=== PATIENT | female | born 1955 | race African-American/Black ===

== ENCOUNTER 2017-01-05 11:03 | Emergency (ER) | payer MEDICAID ==
--- NOTE | 2017-01-05 11:22 | DR.GENAD ---
HPI - PCP Primary Care Physician: Nanda - HPI Comment HPI Comment: PATIENT DENIES TRAUMA. HAVING PROBLEM BEARING WEIGHT ON THE RIGHT LOWER EXTREMITY. HISTORY ARTHRITIS. - Complaint/Symptoms Chief Complaint Doctors Comments: RIGHT KNEE PAIN FOR SEVERAL DAYS. WORSE THIS AM. Chief Complaint:: LEFT KNEE PAIN - Nurses notes reviewed Nurses Notes Review: Yes - Source History Provided: Patient - Mode of Arrival Mode of Arrival: Ambulatory - Timing Onset of Chief Complaint: 12/22/16 Came on: Suddenly - Duration Duration: Constant Duration: Days - Severity Severity: Moderate PMH - PMH Past Medical History: Yes Past Medical History: Arthritis, COPD, Hypertension Past Surgical History: Yes Surgical History: Abdominal Surgery - Family History History of Family Medical Conditions: Yes Family Medical History: Diabetes Mellitus, Hypertension - Social History Does patient currently use any type of tobacco product: Yes Have you used tobacco products in the last 12 months: Yes Type of Tobacco Use: Cigarettes How many years tobacco product used: 40 Does any household member use tobacco: No Alcohol Use: None Do you use any recreational Drugs:: No Lives With: Family Lives Where: Home - infectious screening In the last 2 months have you had wt loss of >10#?: NO Have you had fever, night sweats or hemotysis?: No Have you traveled outside the country in the last 6 months?: No Isolation: Standard ROS - Review of Systems Constitutional: No Symptoms Reported Eyes: No Symptoms Reported ENTM: No Symptoms Reported Respiratoy: No Symptoms Reported Cardiovascular: No Symptoms Reported Gastrointestinal/Abdominal: No Symptoms Reported Genitourinary: No Symptoms Reported Neurological: Problems Walking (PUTTING WEIGHT ON RLE.) Musculoskeletal: Right, Knee Integumentary: No Symptoms Reported Hematologic/Lymphatic: No Symptoms Reported Endocrine: No Symptoms Reported All Other Systems: Reviewed and Negative PE - Vital Signs Vitals: Temperature 98.8 F Pulse Rate 88 Respiratory Rate 20 Blood Pressure [Right Arm] 170/81 Blood Pressure 200/102 O2 Sat by Pulse Oximetry 100 - General Limitations: No Limitations General Appearance: Alert - Head Head Exam: Normal Inspection - Eyes Eye exam: Normal Appearance - ENT ENT Exam: Normal External Ear Exam External Ear Exam: Normal External Inspection Throat Exam: Normal Inspection - Neck Neck Exam: Trachea Midline - Chest Chest Inspection: Symmetric Chest Wall Rise - Respiratory Respiratory Exam: Normal Lung Sounds Bilat Respiratory Exam: Bilateral Clear to Auscultation - Cardiovascular Cardiovascular Exam: Regular Rate, Normal Rhythm, Normal Heart Sounds - Abdominal Exam Abdominal Exam: Normal Inspection - Extremities Extremities Exam: Tenderness (RIGHT KNEE), Joint Swelling (RIGHT KNEE) - Back Back Exam: Normal Inspection - Neurologic Neurological Exam: Alert, Oriented X3 - Psychiatric Psychiatric Exam: Normal Affect, Normal Mood - Skin Skin Exam: Normal Color MDM - Differential Diagnosis Differential Diagnosis: RIGHT KNEE PAIN, SPRAIN, FRACTURE, STRAIN, ARTHRITIS Course - Treatment Treatment: SEE ORDERS. BP IMPROVE. HAVE NORVASE THAT SHE WILL TAKE WHEN SHE GET HOME. DOSAGE NOT ON OUR RECORD. - Education/Counseling Education/Counseling: Patient, Education Educated On: Treatment, Diagnosis, Needs for Follow Up ROR - XRAY XRAY Interpreted by: Radiologist XRAY Findings: REPORT DISCUSS WITH PATIENT. - Diagnosis Discharge Problem: Musculoskeletal pain, Arthritis Right knee pain Qualifiers: Chronicity: acute Qualified Code(s): M25.561 - Pain in right knee Hypertension Qualifiers: Hypertension type: essential hypertension Qualified Code(s): I10 - Essential ( primary) hypertension - Discharge Plan Disposition: 01 HOME, SELF-CARE Condition: Stable Prescriptions: Ibuprofen [MOTRIN TAB 600 MG *] 600 mg PO TID PRN #20 tab PRN Reason: Pain/Inflammation Lisinopril 10 mg PO DAILY #30 tab Tramadol HCl 50 mg PO Q8H PRN #12 tab PRN Reason: Pain - Follow ups/Referrals Follow ups/Referrals: Jeannette YS [Primary Care Provider] - 3 days - Instructions Instructions: Hypertension, Arthritis, [id number] Additional Instructions: RETURN TO ED IF WORSE.
[2017-01-05] MEDS ORDERED: TORADOL 60 MG VIAL IM ONE (11:23)
[2017-01-05] MEDS ORDERED: NORFLEX INJ IM ONE (11:23)
[2017-01-05] MEDS ORDERED: NORFLEX INJ ONE (11:29)
[2017-01-05] MEDS ORDERED: TORADOL 60 MG VIAL ONE (11:29)
[2017-01-05] MEDS ORDERED: ZESTRIL TAB 10 MG PO ONE (12:01)
[2017-01-05 12:43] VITALS: BP 170/81
--- NOTE | 2017-01-05 14:52 | RAD ---
History: Right knee pain. Exam: Two view series of the right knee joint demonstrates mild to moderate tricompartmental right k nee joint osteoarthritis which is most severe in the medial knee compartment. There is a small to mo derate sized knee joint effusion with diffuse periarticular edema. In the absence of a history of tr auma, an early knee joint infection should be considered and excluded. No acute fracture or acute alyssa ny injury is seen. No destructive lytic bony lesion or process is currently seen. No aggressive jt ostitis or foreign bodies observed. No other abnormalities are seen. Impression: As above. Reported By:
== END 2017-01-05 12:49 | disposition home or self-care (01) ==
LOC: ER 11:03
DX: M19.90 Unspecified osteoarthritis, unspecified site (principal); M79.1 Myalgia; M25.561 Pain in right knee; I10 Essential (primary) hypertension
CPT/HCPCS: 73560; 96372; 99282; 99283; J1885; J2360

== ENCOUNTER 2017-06-02 12:21 | Emergency (ER) | payer MEDICAID ==
[2017-06-02 12:27] VITALS: BP 184/82; BMI 19.8
--- NOTE | 2017-06-02 12:54 | DR.EXTPAIN ---
HPI - Time seen Time seen: 12:50 - PCP Primary Care Physician: KERRIE - Complaint/Symptoms Chief Complaint Doctor Comments: Patient states that she moving and in the back of truck injured left foot on furnature moved onto her foot. She states that she also feel to the floor and hurt her coccyx Chief Complaint:: FOOT AND BACK PAIN. FEEL A COUPLE WEEKS AGO AND HURT MY BACK AND FOOT Self Treatment fo Chief Complaint: KENNEDY FERNANDEZ AND OTC MEDS - Source History Provided: Patient - Mode of arrival Mode of Arrival: Ambulatory - Timing Onset of Chief Complaint: 05/19/17 PMH - PMH Past Medical History: Yes Past Medical History: Arthritis, COPD, Hypertension Past Surgical History: Yes Surgical History: Abdominal Surgery - Family History History of Family Medical Conditions: Yes Family Medical History: Heart Failure - Social History Type of Tobacco Use: Cigarettes Does any household member use tobacco: No Alcohol Use: None Do you use any recreational Drugs:: No Lives With: Alone Lives Where: Home - infectious screening In the last 2 months have you had wt loss of >10#?: NO Have you had fever, night sweats or hemotysis?: No Have you traveled outside the country in the last 6 months?: No Isolation: Standard ROS - Review of Systems Eyes: No Symptoms Reported ENTM: No Symptoms Reported Respiratoy: No Symptoms Reported Cardiovascular: No Symptoms Reported Gastrointestinal/Abdominal: No Symptoms Reported Genitourinary: No Symptoms Reported Neurological: No Symptoms Reported Musculoskeletal: Foot (left foot pain) Integumentary: No Symptoms Reported Hematologic/Lymphatic: No Symptoms Reported Endocrine: No Symptoms Reported Psychiatric: No Symptoms Reported All Other Systems: Reviewed and Negative PE - Vital Signs Vitals: Temperature 98.6 F Pulse Rate 84 Respiratory Rate 20 Blood Pressure [Right Arm] 170/81 Blood Pressure 184/82 O2 Sat by Pulse Oximetry 100 - General General Appearance: Alert, In No Apparent Distress - Head Head Exam: Normal Inspection, Atraumatic - Eyes Eye exam: Normal Appearance, PERRL, EOMI - ENT ENT Exam: Normal Exam - Neck Neck Exam: Normal Inspection - Chest Chest Inspection: Normal Inspection - Respiratory Respiratory Exam: Normal Lung Sounds Bilat Respiratory Exam: Bilateral Clear to Auscultation - Cardiovascular Cardiovascular Exam: Regular Rate, Normal Rhythm - Abdominal Exam Abdominal Exam: Normal Inspection, Normal Bowel Sounds Abdominal Tenderness: negative: RUQ, RLQ, LUQ, LLQ, Epigastrium, Suprapubic, Diffuse, Mild, Moderate, Severe, Other - Extremities Extremities Exam: Normal Inspection, Full ROM - Upper Extremities Shoulder Exam: Normal Inspection, Full ROM Arm Exam: Normal Inspection Elbow Exam: Normal Inspection Forearm Exam: Normal Inspection Hand Exam: Normal Inspection Neuromotor Exam: Normal Exam Neurosensory Exam: Normal Exam - Lower Extremities Hip/Pelvis Exam: Normal Inspection Upper Leg Exam: Normal Inspection Knee Exam: Normal Inspection Lower Leg Exam: Normal Inspection Ankle Exam: Normal Inspection Foot/Toe Exam: Tenderness (left) Neurovascular/Tendon Exam: Normal Capillary Refill Gait Exam: Observed & Limited by Pain - Back Back Exam: Normal Inspection - Neurological Neurological Exam: Alert, Oriented X3, CN II-XII Intact - Psychiatric Psychiatric Exam: Normal Affect, Normal Mood - Skin Skin Exam: Warm, Dry, Intact ROR - XRAY XRAY Interpreted by: Radiologist (Mild degenerative joint changes at the meta tarsophalangeal joint. No fracture) - Diagnosis Discharge Problem: Contusion of foot, left Qualifiers: Encounter type: initial encounter Qualified Code(s): S90.32XA - Contusion of left foot, initial encounter - Discharge Plan Condition: Stable - Follow ups/Referrals Follow ups/Referrals: Jeannette SY [Primary Care Provider] - 3 days - Instructions
[2017-06-02] MEDS ORDERED: TORADOL 30 MG VIAL IM ONE (12:55)
[2017-06-02] MEDS ORDERED: TORADOL 30 MG VIAL ONE (13:10)
--- NOTE | 2017-06-02 13:39 | RAD ---
HISTORY: Pain, patient fell couple of weeks ago Study: Left foot three views Comparison: Findings: No acute cortical disruption or dislocation can be identified. No significant soft tissue swelling or injury can be seen. The visualized portions of the talus and calcaneus are unremarkable. Mild de generative changes of 1st metatarsophalangeal joint are noted. IMPRESSION: 1. Mild degenerative changes of the 1st metatarsophalangeal joint. No acute fracture or dislocation seen. Reported By:
== END 2017-06-02 14:27 | disposition home or self-care (01) ==
LOC: ER 12:33
DX: S90.32XA Contusion of left foot, initial encounter (principal); X58.XXXA Exposure to other specified factors, initial encounter; Y92.89 Other specified places as the place of occurrence of the external cause
CPT/HCPCS: 73630; 96372; 99282; J1885

== ENCOUNTER 2025-09-24 14:30 | Observation (INO) ==
--- NOTE | 2025-09-24 14:45 | DR.AMS ---
HPI Time Seen Time Seen by Provider: 09/24/25 14:44 Complaint Cheif Complaint Doctors Comments: To the paramedics they stated that the patient signed states she was little disoriented and very irritable she does get chemotherapy daily for lung cancer but over last couple days she has been more disoriented.She did miss getting chemotherapy for the last 2 days. PMH PMH Past Medical History: Anemia, Anxiety, Arthritis, COPD, Diabetes, GERD and Hypertension Past Surgical History: Yes Surgical History: Abdominal Surgery and Other Family History Family Medical History: Heart Failure Social History Do you use any recreational Drugs:: No ROS Review of Systems Constitutional: Irritable, Fatigue and Other (abdominal pain) Eyes: No Symptoms Reported ENTM: No Symptoms Reported Respiratoy: No Symptoms Reported Cardiovascular: No Symptoms Reported Gastrointestinal/Abdominal: Abdominal Pain Genitourinary: No Symptoms Reported Neurological: Weakness Musculoskeletal: No Symptoms Reported Integumentary: No Symptoms Reported Hematologic/Lymphatic: No Symptoms Reported Endocrine: No Symptoms Reported Psychiatric: No Symptoms Reported All Other Systems: Reviewed and Negative PE Vitals Vital Signs: Temp Pulse Resp BP Pulse Ox O2 Del Method O2 Flow Rate 09/24/25 18:00 158/76 09/24/25 18:00 111 H 19 98 09/24/25 17:45 113 H 19 99 09/24/25 17:30 160/86 09/24/25 17:30 114 H 22 09/24/25 17:15 111 H 30 H 09/24/25 17:00 115 H 24 09/24/25 17:00 170/87 09/24/25 16:59 25 H 09/24/25 16:45 114 H 25 H Nasal Cannula 2 09/24/25 16:30 115 H 27 H 95 Nasal Cannula 2 09/24/25 16:30 165/82 Nasal Cannula 2 09/24/25 16:15 87 24 98 Nasal Cannula 2 09/24/25 16:00 102 H 27 H 98 Nasal Cannula 2 09/24/25 16:00 197/93 Nasal Cannula 2 09/24/25 15:47 141/90 Nasal Cannula 2 09/24/25 15:47 113 H 26 H Nasal Cannula 2 09/24/25 15:45 114 H 26 H Nasal Cannula 2 09/24/25 15:37 107 H 26 H Nasal Cannula 2 09/24/25 15:15 112 H 30 H 100 Nasal Cannula 2 09/24/25 15:03 113 H 22 99 09/24/25 14:31 98.8 F 112 H 19 173/85 97 Nasal Cannula General Limitations: Physical Limitation (due to lung cancer and lethargy) General Appearance: In Distress (moderate distress) Head Head Exam: Normal Inspection Eyes Eye exam: Normal Appearance ENT ENT Exam: Normal Exam External Ear Exam: Normal External Inspection TM/Canal Exam: Bilateral: Normal Nose Exam: Normal Nose Exam Mouth Exam: Normal Inspection Throat Exam: Normal Inspection Neck Neck Exam: Normal Inspection Chest Chest Inspection: Other (right shoulder lesion) Respiratory Respiratory Exam: Normal Lung Sounds Bilat Respiratory Exam: Bilateral: Rhonchi Cardiovascular Cardiovascular Exam: Regular Rate Abdominal Exam Abdominal Exam: Normal Inspection, Normal Bowel Sounds and Distention Extremities Extremities Exam: Normal Inspection Back Back Exam: Normal Inspection Neurological Neurological Exam: Alert, Oriented X3 and CN II-XII Intact Patient Oriented To: Person, Place and Time Speech: Fluid Speech Motor Strength - LUE: 2/5 Motor Strength - RUE: 2/5 Motor Strength - LLE: 2/5 Motor Strength - RLE: 2/5 MDM Additional Information Obtained Findings: constipation,metastatic lung disease Differential Diagnosis Metabolic: Dehydration Toxicologic: Medication Toxicity Infectious: UTI COURSE Treatment Treatment: Patient complaining increased pain doing this ER evaluation. She was given morphine 4 mg IV for pain along with Zofran 4 mg IV for pain.We did a CT scan of the abdomen pelvis that showed metastatic lung disease and a normal amount of constipation in the colon.There was no bowel obstruction.The spine and insisted patient was currently getting radiation patient therapy for her lung cancer and she is taking some medication for her constipation but she has not not been able to be compliant with that and she has not a tremendous amount of stool in her colon so we did discuss this patient with the on-call with Dr. Edwards instead the patient could be put in for obstipation and for management of her pain.Patient was told of the plan to admit for obstipation and the patient family was also told of the plan to admit biopsy patient and there was agreeing to the obstipation admission. [facility]OR Labs Reviewed Laboratory Results Reviewed?: Yes 09/24/25 14:50 09/24/25 14:50 Laboratory: WBC 7.3 X10^3/uL (3.6-10.0) 09/24/25 14:50 RBC 3.52 X10^6/uL (3.5-5.4) 09/24/25 14:50 Hgb 8.1 g/dL (12.0-16.0) L 09/24/25 14:50 Hct 25.2 % (36.0-47.0) L 09/24/25 14:50 MCV 71.7 fL (80.0-100.0) L 09/24/25 14:50 MCH 23.0 pg (27.0-34.0) L 09/24/25 14:50 MCHC 32.1 g/dL (33.0-35.0) L 09/24/25 14:50 RDW 22.5 % (11.6-16.5) H 09/24/25 14:50 Plt Count 423 X10^3/uL (150.0-450.0) 09/24/25 14:50 MPV 7.0 fL (7.4-11.0) L 09/24/25 14:50 Neut % (Auto) 84.2 % (42.0-75.0) H 09/24/25 14:50 Lymph % (Auto) 6.9 % (21.0-51.0) L 09/24/25 14:50 Jasper % (Auto) 8.2 % (0.0-13.0) 09/24/25 14:50 Eos % (Auto) 0.4 % (0.9-2.9) L 09/24/25 14:50 Baso % (Auto) 0.3 % (0.2-1.0) 09/24/25 14:50 Neut # (Auto) 6.2 x10^3/uL (2.2-4.8) H 09/24/25 14:50 Lymph # (Auto) 0.5 X10^3/uL (1.3-2.9) L 09/24/25 14:50 Jasper # (Auto) 0.6 x10^3/uL (0.3-0.8) 09/24/25 14:50 Eos # (Auto) 0.0 x10^3/uL (0.0-0.2) 09/24/25 14:50 Baso # (Auto) 0.0 X10^3/uL (0.0-0.1) 09/24/25 14:50 Absolute Nucleated RBC 0.0 /100WBC 09/24/25 14:50 Sodium 139 mmol/L (136-145) 09/24/25 14:50 Corrected Sodium TNP 09/24/25 14:50 Potassium 3.4 mmol/L (3.5-5.1) L 09/24/25 14:50 Chloride 101 mmol/L (98-107) 09/24/25 14:50 Carbon Dioxide 31.5 mmol/L (21-32) 09/24/25 14:50 BUN 15 mg/dL (7-18) 09/24/25 14:50 Creatinine 0.71 mg/dL (0.55-1.02) 09/24/25 14:50 Est GFR (MDRD) Af Amer > 60 (>60) 09/24/25 14:50 Est GFR (MDRD) Non-Af > 60 (>60) 09/24/25 14:50 Glucose 85 mg/dL (65-99) 09/24/25 14:50 Calcium 11.1 mg/dL (8.5-10.1) H 09/24/25 14:50 Corrected Calcium 12.9 mg/dL (8.5-10.1) H 09/24/25 14:50 Total Bilirubin 0.30 mg/dL (0.2-1.0) 09/24/25 14:50 AST 25 Units/L (15-37) 09/24/25 14:50 ALT 9 Units/L (12-78) L 09/24/25 14:50 Alkaline Phosphatase 117 Units/L (46-116) H 09/24/25 14:50 Total Protein 8.6 g/dL (6.4-8.2) H 09/24/25 14:50 Albumin 1.7 g/dL (3.4-5.0) L 09/24/25 14:50 Globulin 6.9 g/dL (2.5-4.5) H 09/24/25 14:50 Albumin/Globulin Ratio 0.2 Ratio (1.1-2.1) L 09/24/25 14:50 Amylase 11 Units/L (25-115) L 09/24/25 14:50 Lipase 9 Units/L (16-77) L 09/24/25 14:50 Opioid Opioid Risk Tool Age (Gar[place] box if 16-45): No History of Preadolescent Sexual Abuse: No Total: 0 Total Score Risk Category: Low Risk Copyright: Tahir HOUSER predicting aberrant behaviors Discharge Plan Diagnosis Discharge Problem: Obstipation, Metastatic primary lung cancer, Chronic pain Discharge Plan Patient Disposition: 09 ADMITTED INPATIENT Condition: Stable Orders to Discharge Patient Discharge Orders: Transfer (Routine); Ordered 09/24/25 Ordered By: Arnulfo Wilkerson
[2025-09-24 15:10] LABS: MEAN PLATELET VOLUME 7.0 fL (7.4-11.0); RED CELL DISTRIBUTION WIDTH 22.5 % (11.6-16.5)
[2025-09-24 15:24] LABS: COR CA(FOR HYPOALB) 12.9 mg/dL (8.5-10.1); CREATININE 0.71 mg/dL (0.55-1.02); eGFR NON BLACK RACES > 60 (>60)
--- NOTE | 2025-09-24 16:25 | CT ---
EXAM: CT ABDOMEN AND PELVIS WITH CONTRAST HISTORY: RT SIDE ABD PAIN; COMPARISON: None. TECHNIQUE: Axial CT images were obtained through the abdomen and pelvis after the intravenous administration of contrast. Coronal reformatted images were included. Informed written consent was obtained prior to contrast administration. All CT scans at this facility use dose modulation, iterative reconstruction, and/or weight based dosing when appropriate to reduce radiation dose to as low as reasonably achievable. FINDINGS: LOWER THORAX: Innumerable pulmonary nodules noted at the lung bases, grossly similar to previous examination. Mediastinal lymphadenopathy. Inferior sternal lytic lesion is noted, described in further detail below. ABDOMEN: LIVER: Within normal limits. GALLBLADDER: Within normal limits. SPLEEN: Within normal limits. PANCREAS: Within normal limits. KIDNEYS: Within normal limits. ADRENAL GLANDS: Within normal limits. GI TRACT: Large volume of colonic stool suggests constipation. No evidence of bowel obstruction. LYMPH NODES: Retroperitoneal lymphadenopathy noted. Reference lymph node adjacent to the aorta measures 1.7 x 1.0 cm. VESSELS: Mild atherosclerosis. PERITONEUM / RETROPERITONEUM: No free gas. PELVIS: BLADDER: Within normal limits. GENITALS: Calcified uterine fibroids. BONES: There is a lytic lesion in the inferior sternum, consistent with osseous metastatic disease. IMPRESSION: Metastatic disease noted within multiple pulmonary nodules, mediastinal and retroperitoneal lymph nodes and within the inferior sternum, presumably related to the reported history of lung cancer. Large volume of colonic stool. No evidence of bowel obstruction. No clear correlate for right-sided abdominal pain. THIS IS AN ELECTRONICALLY VERIFIED FINAL REPORT 09/24/2025 4:22 PM - Electronically signed by Km Fowler MD
[2025-09-24] MEDS: MORPHINE SULFATE INJ 4 MG IVP ONE (16:59)
[2025-09-24] MEDS: ZOFRAN INJ 4 MG VIAL IVP ONE (16:59)
[2025-09-24] MEDS ORDERED: NS 1,000 ML IV 1,000 ML ONE (19:37)
[2025-09-24] MEDS: DULCOLAX SUPPOSITORY 10 MG RECTAL ONE (19:41)
[2025-09-24] MEDS: NS 1,000 ML IV 1,000 ML IV SCH (19:53)
[2025-09-24] MEDS: MORPHINE SULFATE INJ 2 MG INJ IVP PRN (20:01)
[2025-09-24 20:26] VITALS: BMI 17.2
[2025-09-24] MEDS ORDERED: NovoLIN R (or HumuLIN R) SUBCUT PRN (20:32)
[2025-09-24] MEDS: PULMICORT NEB TX 0.5 MG NEB SCH (21:18)
[2025-09-24] MEDS: CATAPRES TAB 0.2 MG PO SCH (21:42)
[2025-09-24] MEDS: NEURONTIN TAB 600 MG PO SCH (21:42)
[2025-09-24] MEDS: MILK OF MAGNESIA PO PRN (21:42)
[2025-09-24] MEDS: FLEET ENEMA ADULT PR SCH (21:55)
[2025-09-24] MEDS: RELISTOR SC SCH (23:04)
[2025-09-25] MEDS: NORCO 5/325 MG TAB PO PRN (01:13)
[2025-09-25 07:13] LABS: MEAN PLATELET VOLUME 7.4 fL (7.4-11.0); RED CELL DISTRIBUTION WIDTH 22.6 % (11.6-16.5)
[2025-09-25 07:18] LABS: COR CA(FOR HYPOALB) 12.2 mg/dL (8.5-10.1); CREATININE 0.69 mg/dL (0.55-1.02); eGFR NON BLACK RACES > 60 (>60)
[2025-09-25] MEDS ORDERED: CONSULT PHARMACY - POTASSIUM & MAGNESIUM XX SCH (08:00)
[2025-09-25] MEDS ORDERED: PATIENT'S HOME MEDICATION (Fluticasone-Umeclidin-Vilanter [Trelegy Ellipta] 100-62.5-25 mc IN SCH (09:00)
[2025-09-25] MEDS: K-DUR TAB 20 MEQ PO SCH (09:33)
[2025-09-25] MEDS: PROTONIX TAB 40 MG PO SCH (09:33)
[2025-09-25] MEDS: ZESTRIL TAB 40 MG PO SCH (09:33)
[2025-09-25] MEDS: LINZESS PO SCH (09:33)
[2025-09-25] MEDS: SINGULAIR TAB 10 MG PO SCH (09:34)
[2025-09-25] MEDS: NORVASC TAB 10 MG PO SCH (09:34)
--- NOTE | 2025-09-25 15:25 | CT ---
EXAM: BRAIN W/O CON HISTORY: AMS, HX METASTATIC CANCER; COMPARISON: 07/30/2025 TECHNIQUE: CT of the head obtained without IV contrast. Sagittal and coronal reformatted images were performed. Dose reduction techniques including Automated Exposure Control (AEC) and adjustment of mA and kV were utilized. FINDINGS: No evidence of acute territorial infarct. No acute intracranial hemorrhage. No evidence of intracranial mass or midline shift. No hydrocephalus. No abnormal intra or extra-axial fluid collections. Mild chronic small vessel ischemic changes and global volume loss with commensurate ventricular dilatation. The calvaria is intact. The bilateral mastoid air cells and visualized paranasal sinuses are well pneumatized. The bilateral orbits are unremarkable. IMPRESSION: No acute intracranial findings. THIS IS AN ELECTRONICALLY VERIFIED FINAL REPORT 09/25/2025 3:22 PM - Electronically signed by Stefano Vale MD
--- NOTE | 2025-09-25 15:54 | DR.H&P ---
H&P History & Physical for Day of: H&P Date: 09/24/25 Chief Complaint Chief Complaint: abdominal pain History of Present Illness History of Present Illness: Patient brought to the ER by family due to worsening abdominal pain and mental status. She is undergoing immunotherapy and radiation for metastatic lung cancer. Was originally on hospice and then decided to be more aggressive and go for a cure. She has missed a couple of days of radiation this week due to her fatigue, abdominal pain, and worsening overall mental status. Sister is currently at bedside with the nurse. ER workup was consistent with severe constipation and mild hypercalcemia with other chronic changes. ROS: 12 point ROS positive for generalized weakness, visible mets, altered mental status, severe constipation, decreased oral intake, and malaise. Is negative for fever, chills, nausea, vomiting, diarrhea, dysuria. PE: Frail, elderly, chronically ill-appearing female in no acute distress. She appears uncomfortable and is leaning to the left while holding her face in her hand. Heart regular rate and rhythm. Lungs diminished with abnormal sounds throughout. Belly is mildly distended but soft with bowel sounds present. Skin turgor is decreased with no rash appreciated. She has markings that appear to be associated with radiation treatments on her chest. Swelling of bilateral lower extremities present. Past Medical History Past Medical History: Anemia, Anxiety, Arthritis, COPD, Diabetes, GERD, Hypertension and Cancer (Metastatic lung) Past Surgical History Surgical History: Abdominal Surgery Family History Family Medical History: Cancer, MD and Coronary Artery Disease Social History Does patient currently use any type of tobacco product: Yes Have you used tobacco products in the last 12 months: Yes Type of Tobacco Use: Cigarettes Does any household member use tobacco: No Alcohol Use: None Drug Use: None Medications Home Medications: Home Medications Medication Instructions Recorded Confirmed Type clonidine HCl 0.2 mg tablet 0.2 mg PO BID 08/23/2510/07 History cyproheptadine 4 mg tablet 4 mg PO BID 08/23/25 History fluticasone fur. 100 mcg-umeclid 1 ea inhalation QDAY 08/23/25 09/24/25 History 62.5 mcg-vilant 25 mcg inhalat.powder (Trelegy Ellipta) gabapentin 600 mg tablet 600 mg PO TID 08/23/2509/24 History hydrocodone 5 mg-acetaminophen 325 1 tab PO TID PRN 09/24/25 History mg tablet lisinopril 40 mg tablet 40 mg PO QDAY 08/23/2509/24 History lubiprostone 8 mcg capsule 8 mcg PO BID 08/23/2509/24 History megestrol 40 mg tablet 40 mg PO QID 08/23/25 History montelukast 10 mg tablet 10 mg PO QDAY 08/23/2509/24 History pantoprazole 40 mg tablet,delayed 40 mg PO QDAY 09/24/25 History release amlodipine 10 mg tablet 10 mg PO QDAY 09/24/2509/24 History hydrocodone 5 mg-acetaminophen 325 1 tab PO TID PRN 09/24/25 History mg tablet linaclotide 72 mcg capsule 72 mcg PO QAM 09/24/2509/13 History (Linzess) lorazepam 0.5 mg tablet 0.5 mg PO QID PRN 09/24/25 1 11/25/24 History morphine concentrate 100 mg/5 mL mg PO PRN PRN 5 History (20 mg/mL) oral solution oxycodone 30 mg tablet 30 mg PO PRN PRN 09/24/25 History prochlorperazine maleate 10 mg 10 mg PO Q6HR 09/24/25 09/24/25 History tablet Allergies Allergies Allergy/AdvReac Type Severity Reaction Status Date / Time No Known Drug Allergies Allergy Verified 09/24/25 16:39 Labs 09/25/25 06:30 09/25/25 06:30 Labs: Laboratory WBC 7.3 X10^3/uL (3.6-10.0) 09/24/25 14:50 RBC 3.52 X10^6/uL (3.5-5.4) 09/24/25 14:50 Hgb 8.1 g/dL (12.0-16.0) L 09/24/25 14:50 Hct 25.2 % (36.0-47.0) L 09/24/25 14:50 MCV 71.7 fL (80.0-100.0) L 09/24/25 14:50 MCH 23.0 pg (27.0-34.0) L 09/24/25 14:50 MCHC 32.1 g/dL (33.0-35.0) L 09/24/25 14:50 RDW 22.5 % (11.6-16.5) H 09/24/25 14:50 Plt Count 423 X10^3/uL (150.0-450.0) 09/24/25 14:50 MPV 7.0 fL (7.4-11.0) L 09/24/25 14:50 Neut % (Auto) 84.2 % (42.0-75.0) H 09/24/25 14:50 Lymph % (Auto) 6.9 % (21.0-51.0) L 09/24/25 14:50 [place] % (Auto) 8.2 % (0.0-13.0) 09/24/25 14:50 Eos % (Auto) 0.4 % (0.9-2.9) L 09/24/25 14:50 Baso % (Auto) 0.3 % (0.2-1.0) 09/24/25 14:50 Neut # (Auto) 6.2 x10^3/uL (2.2-4.8) H 09/24/25 14:50 Lymph # (Auto) 0.5 X10^3/uL (1.3-2.9) L 09/24/25 14:50 [place] # (Auto) 0.6 x10^3/uL (0.3-0.8) 09/24/25 14:50 Eos # (Auto) 0.0 x10^3/uL (0.0-0.2) 09/24/25 14:50 Baso # (Auto) 0.0 X10^3/uL (0.0-0.1) 09/24/25 14:50 Absolute Nucleated RBC 0.0 /100WBC 09/24/25 14:50 Sodium 139 mmol/L (136-145) 09/24/25 14:50 Corrected Sodium TNP 09/24/25 14:50 Potassium 3.4 mmol/L (3.5-5.1) L 09/24/25 14:50 Chloride 101 mmol/L (98-107) 09/24/25 14:50 Carbon Dioxide 31.5 mmol/L (21-32) 09/24/25 14:50 BUN 15 mg/dL (7-18) 09/24/25 14:50 Creatinine 0.71 mg/dL (0.55-1.02) 09/24/25 14:50 Est GFR (MDRD) Af Amer > 60 (>60) 09/24/25 14:50 Est GFR (MDRD) Non-Af > 60 (>60) 09/24/25 14:50 Glucose 85 mg/dL (65-99) 09/24/25 14:50 POC Glucose (mg/dL) 80 mg/dL (65-99) 09/24/25 20:40 Calcium 11.1 mg/dL (8.5-10.1) H 09/24/25 14:50 Corrected Calcium 12.9 mg/dL (8.5-10.1) H 09/24/25 14:50 Total Bilirubin 0.30 mg/dL (0.2-1.0) 09/24/25 14:50 AST 25 Units/L (15-37) 09/24/25 14:50 ALT 9 Units/L (12-78) L 09/24/25 14:50 Alkaline Phosphatase 117 Units/L (46-116) H 09/24/25 14:50 Total Protein 8.6 g/dL (6.4-8.2) H 09/24/25 14:50 Albumin 1.7 g/dL (3.4-5.0) L 09/24/25 14:50 Globulin 6.9 g/dL (2.5-4.5) H 09/24/25 14:50 Albumin/Globulin Ratio 0.2 Ratio (1.1-2.1) L 09/24/25 14:50 Amylase 11 Units/L (25-115) L 09/24/25 14:50 Lipase 9 Units/L (16-77) L 09/24/25 14:50 Physical Exam Vital Signs: Vital Signs Temperature 97.5 F Temperature 98.8 F Pulse Rate [Apical] 98 Pulse Rate 114 Pulse Rate 111 Pulse Rate 113 Pulse Rate 114 Pulse Rate 111 Pulse Rate 115 Pulse Rate 114 Pulse Rate 115 Pulse Rate 87 Pulse Rate 102 Pulse Rate 113 Pulse Rate 114 Pulse Rate 107 Pulse Rate 112 Pulse Rate 113 Pulse Rate 112 Respiratory Rate 22 Respiratory Rate 16 Respiratory Rate 22 Respiratory Rate 19 Respiratory Rate 19 Respiratory Rate 22 Respiratory Rate 30 Respiratory Rate 24 Respiratory Rate 25 Respiratory Rate 25 Respiratory Rate 27 Respiratory Rate 24 Respiratory Rate 27 Respiratory Rate 26 Respiratory Rate 26 Respiratory Rate 26 Respiratory Rate 30 Respiratory Rate 22 Respiratory Rate 19 Blood Pressure [Right Arm] 186/83 Blood Pressure 158/76 Blood Pressure 160/86 Blood Pressure 170/87 Blood Pressure 165/82 Blood Pressure 197/93 Blood Pressure 141/90 Blood Pressure 173/85 O2 Sat by Pulse Oximetry 97 O2 Sat by Pulse Oximetry 99 O2 Sat by Pulse Oximetry 98 O2 Sat by Pulse Oximetry 99 O2 Sat by Pulse Oximetry 95 O2 Sat by Pulse Oximetry 98 O2 Sat by Pulse Oximetry 98 O2 Sat by Pulse Oximetry 100 O2 Sat by Pulse Oximetry 99 O2 Sat by Pulse Oximetry 97 Assessment/Plan (1) Obstipation: Narrative Support Text: IV fluids and bowel cleanout. Monitor labs closely. Reassess in the morning. Prognosis is very poor. Status: Acute (2) Hypercalcemia of malignancy: Status: Acute (3) Metastatic primary lung cancer: Qualifiers: Laterality: right Qualified Code(s): C34.91 - Malignant neoplasm of unspecified part of right bronchus or lung Status: Acute (4) AMS (altered mental status): Qualifiers: Altered mental status type: disorientation Qualified Code(s): R41.0 - Disorientation, unspecified Status: Acute (5) Hypokalemia: Status: Acute (6) Hypoalbuminemia: Status: Acute
--- NOTE | 2025-09-25 15:58 | NOTE.SOAP ---
Soap Note Note for Day of Date of Exam: 09/25/25 Subjective Data Subjective Data: Multiple bowel movements through the night and through the morning. Family at bedside reports no mental status changes. Still wanting to pursue aggressive therapy per patient's wishes. Objective Data Objective Data: Chronically ill-appearing, elderly female in no acute distress. Minimal input into exam but is able to attempt answer questions. Heart regular rate and rhythm. Lungs diminished throughout. Bowel sounds are present and less distended than last night. Assessment Assessment: Moderate hypercalcemia Severe constipation Metastatic lung cancer Acute on chronic anemia due to cancer and multiple bowel movements Plan Plan: Check an ammonia level, brain CT benign, zoledronic acid, monitor closely. Prognosis remains poor.
[2025-09-25] MEDS: ATIVAN TAB 0.5 MG PO PRN (18:18)
[2025-09-25] MEDS: RECLAST IV ONE (18:19)
[2025-09-25] MEDS: NICOTINE PATCH TD SCH (19:44)
[2025-09-25] MEDS: SNACK - Diabetic Appropriate PO SCH (21:34)
[2025-09-26 03:47] LABS: ABG BASE EXCESS 5.6 mmol/L (-2.0-2.0); ABG HCO3 29.8 mmol/L (22-26); ABG OXYGEN SATURATION 97.0 % (90-100); ABG PCO2 41.0 mmHg (35.0-45.0); ABG PH 7.470 (7.35-7.45); ABG PO2 86.0 mmHg (80.0-100.0)
[2025-09-26 03:48] LABS: ABG ALLEN TEST POS
--- NOTE | 2025-09-26 04:41 | RAD ---
EXAM: CHEST, 1 VIEW HISTORY: SOB, Tachypnea; Pt is sob. COMPARISON: 08/20/2025 FINDINGS: The trachea is midline. Left Port-A-Cath with tip in SVC. The cardiac silhouette is unremarkable. There is widening of the mediastinum due to known mediastinal adenopathy. There are numerous pulmonary metastases bilaterally. There is blunting of the costophrenic angles due to small pleural effusions [id number].. The bony thorax is unremarkable. IMPRESSION: Widening of the mediastinum due to known mediastinal adenopathy which appears increased from previous 08/20/2025. Innumerable pulmonary nodules consistent with pulmonary metastases. Small bilateral pleural effusions. Superimposed interstitial edema and/or infiltrates not excluded. THIS IS AN ELECTRONICALLY VERIFIED FINAL REPORT 09/26/2025 4:37 AM - Electronically signed by Malick Blue MD
[2025-09-26] MEDS: LASIX IVP ONE (05:52)
[2025-09-26 06:42] LABS: MEAN PLATELET VOLUME 7.1 fL (7.4-11.0); RED CELL DISTRIBUTION WIDTH 22.1 % (11.6-16.5)
[2025-09-26 06:50] LABS: COR CA(FOR HYPOALB) 12.0 mg/dL (8.5-10.1); COR NA(FOR HYPERGLY) 138 mmol/L (136-145); CREATININE 0.63 mg/dL (0.55-1.02); eGFR NON BLACK RACES > 60 (>60)
[2025-09-26] MEDS ORDERED: CONSULT PHARMACY - POTASSIUM & MAGNESIUM XX SCH (07:00)
[2025-09-26 08:22] LABS: PLATELET MORPHOLOGY COMMENT NORMAL (NORMAL)
[2025-09-26] MEDS: K-DUR TAB 20 MEQ PO SCH (09:03)
[2025-09-26] MEDS: CONSULT PHARMACY - POTASSIUM & MAGNESIUM XX SCH (09:10)
[2025-09-26] MEDS ORDERED: K-DUR TAB 20 MEQ PO SCH (10:00)
[2025-09-26] MEDS ORDERED: MAG-OX TAB PO SCH (10:00)
--- NOTE | 2025-09-26 15:07 | NOTE.SOAP ---
Soap Note Note for Day of Date of Exam: 09/26/25 Subjective Data Subjective Data: Patient seen with nurse and children at bedside. Breathing is slightly better but still labored. CT of the head was negative and ammonia was normal. She has continued to have bowel movements with some relief and some improvement in mentation but still not at her baseline. Family and patient are agreeable to calling Dr. Gillespie tomorrow. Objective Data Objective Data: Emaciated, elderly female in no acute distress. Appears chronically ill. Heart regular rate and rhythm. Lungs diminished but good air movement. Belly is soft with bowel sounds present. Assessment Assessment: Moderate hypercalcemia Severe constipation Metastatic lung cancer Acute on chronic anemia due to cancer and multiple bowel movements Plan Plan: Continue supportive care. Poor prognosis. Will contact oncologist tomorrow.
[2025-09-27 06:00] LABS: MEAN PLATELET VOLUME 7.1 fL (7.4-11.0); RED CELL DISTRIBUTION WIDTH 22.0 % (11.6-16.5)
[2025-09-27 06:25] LABS: COR CA(FOR HYPOALB) 11.9 mg/dL (8.5-10.1); CREATININE 0.61 mg/dL (0.55-1.02); eGFR NON BLACK RACES > 60 (>60)
[2025-09-27 06:28] LABS: PLATELET MORPHOLOGY COMMENT NORMAL (NORMAL)
[2025-09-27] MEDS ORDERED: CONSULT PHARMACY - POTASSIUM & MAGNESIUM XX SCH (07:00)
[2025-09-27] MEDS: DUONEB 0.5 MG/3 MG (3 mL) NEB SCH (08:25)
[2025-09-27] MEDS: POTASSIUM CHLORIDE LIQ PO SCH (09:00)
[2025-09-27] MEDS: ZOFRAN INJ 4 MG VIAL IVP PRN (09:45)
[2025-09-27] MEDS: BUTT CREAM (COMPOUND) ONE (15:40)
[2025-09-27] MEDS: OFIRMEV IV 1000 MG VIAL 1,000 MG/100 ML VIAL IV PRN (17:42)
[2025-09-27] MEDS: VIBRAMYCIN 100 MG in D5W 250 ML IV 250 ML IV SCH (17:42)
--- NOTE | 2025-09-27 20:47 | RAD ---
EXAM: CHEST, 1 VIEW HISTORY: INCREASED TEMP; COMPARISON: Chest radiograph from September 26, [address] abdomen/pelvis from September 24, 2025 TECHNIQUE: Chest radiographic imaging, AP portable projection, 1 image FINDINGS: Numerous pulmonary nodules; consistent with metastatic disease. Small pleural effusions. Patchy airspace disease at the right lung base. No pneumothorax. Chest port in place. No acute osseous abnormality. IMPRESSION: 1. Airspace disease at right base could represent atelectasis or developing infiltrate. 2. Small bilateral pleural effusions. 3. Numerous pulmonary metastatic nodules. THIS IS AN ELECTRONICALLY VERIFIED FINAL REPORT 09/27/2025 8:43 PM - Electronically signed by Neal Caldwell MD
[2025-09-28 05:03] LABS: APPEARANCE,URINE HAZY (CLEAR); BLOOD/HEMOGLOBIN,URINE 3+ (NEGATIVE); LEUKOCYTE ESTERASE ,URINE 3+ (NEGATIVE); NITRITES,URINE NEGATIVE (NEGATIVE)
[2025-09-28 05:09] LABS: HYALINE CASTS, URINE FEW /LPF (NEGATIVE); SQUAMOUS EPITHELIAL CELL,UR MODERATE /HPF (NEGATIVE)
[2025-09-28 06:18] LABS: MEAN PLATELET VOLUME 7.2 fL (7.4-11.0); RED CELL DISTRIBUTION WIDTH 23.0 % (11.6-16.5)
[2025-09-28 06:22] LABS: COR CA(FOR HYPOALB) 12.1 mg/dL (8.5-10.1); CREATININE 0.54 mg/dL (0.55-1.02); eGFR NON BLACK RACES > 60 (>60)
[2025-09-28 06:51] LABS: PLATELET MORPHOLOGY COMMENT NORMAL (NORMAL)
--- NOTE | 2025-09-28 08:02 | NOTE.SOAP ---
Soap Note Note for Day of Date of Exam: 09/27/25 Subjective Data Subjective Data: No events overnight. Family at bedside. Breathing still difficult. BMs ongoing. No major changes to status. Objective Data Objective Data: Ill-appearing female in NAD. Wearing O2 mask. Answers slowly and sleeps quickly. RRR. Diminshed lung sound througout. Belly soft with BS present. Assessment Assessment: Stage 4 lung CA Anemia of chronic disease SIRS (fever, tachycardia) COPD Plan Plan: Contacted oncology, they recommend palliation. Cultures due to SIRS. Start IV doxycycline.
[2025-09-28] MEDS: ALBUMIN HUMAN 25%- 100 ML 100 ML IV SCH (11:21)
--- NOTE | 2025-09-28 12:29 | NOTE.SOAP ---
Soap Note Note for Day of Date of Exam: 09/28/25 Subjective Data Subjective Data: Daughter at bedside. No more fevers overnight. Vitals doing fairly well. She is still requiring O2 support. Hemoglobin down to 7.1. Albumin below 2. She does want to continue with radiation after discharge. Family will have a discussion about discharge planning. Objective Data Objective Data: Chronically ill-appearing female in no acute distress. Hunched over in bed with O2 mask in place. Heart regular rate and rhythm. Lungs diminished with rhonchi. Belly soft and nontender with bowel sounds present. Assessment Assessment: Stage IV lung cancer Sepsis-fever, tachycardia, abnormal UA Acute on chronic anemia Hypoalbuminemia with poor p.o. intake Plan Plan: Strongly recommend hospice/palliative care. Will defer to outpatient providers. Family to have a discussion about discharge planning. Continue IV doxycycline, for now. AIT culture added onto urine and blood cultures. Transfusing 1 unit of PRBCs along with infusing some albumin today. Very poor prognosis overall.
[2025-09-28] MEDS: ATIVAN TAB 1 MG PO PRN (17:41)
[2025-09-28] MEDS: TYLENOL 325 MG TAB PO PRN (20:14)
[2025-09-29] MEDS: NORCO 5/325 MG TAB PO PRN (01:05)
[2025-09-29] MEDS: NS 250 ML IV 250 ML IV ONE ×2 (03:50→18:30)
[2025-09-29 05:49] LABS: MEAN PLATELET VOLUME 7.1 fL (7.4-11.0); RED CELL DISTRIBUTION WIDTH 22.2 % (11.6-16.5)
[2025-09-29 06:08] LABS: COR CA(FOR HYPOALB) 11.7 mg/dL (8.5-10.1); CREATININE 0.57 mg/dL (0.55-1.02); eGFR NON BLACK RACES > 60 (>60)
[2025-09-29 06:24] LABS: PLATELET MORPHOLOGY COMMENT NORMAL (NORMAL)
[2025-09-29] MEDS ORDERED: CONSULT PHARMACY - POTASSIUM & MAGNESIUM XX SCH (07:00)
[2025-09-29] MEDS: K-DUR TAB 20 MEQ PO ONE (09:56)
--- NOTE | 2025-09-29 17:46 | NOTE.SOAP ---
Soap Note Note for Day of Date of Exam: 09/29/25 Subjective Data Subjective Data: Patient seen for daily rounds. Son and nurse are at bedside. They are agreeable to hospice referral today. Febrile overnight the cultures have been negative. Hemoglobin did respond to PRBCs. Objective Data Objective Data: Elderly female slightly tripoding with nasal cannula. She appears chronically ill. Heart regular rate and rhythm with diminished lung sounds. Belly is soft with bowel sounds present. Assessment Assessment: Stage IV lung cancer Chronic anemia End-stage COPD Plan Plan: AIT respiratory culture. Referral to hospice. Continue doxycycline for now.
[2025-09-30 06:01] LABS: MEAN PLATELET VOLUME 7.2 fL (7.4-11.0); RED CELL DISTRIBUTION WIDTH 23.1 % (11.6-16.5)
[2025-09-30 06:14] LABS: COR CA(FOR HYPOALB) 11.6 mg/dL (8.5-10.1); COR NA(FOR HYPERGLY) 137 mmol/L (136-145); CREATININE 0.55 mg/dL (0.55-1.02); eGFR NON BLACK RACES > 60 (>60)
[2025-09-30 06:31] LABS: PLATELET MORPHOLOGY COMMENT NORMAL (NORMAL)
[2025-09-30 07:51] VITALS: O2SAT 97
[2025-09-30] MEDS: MORPHINE SULFATE INJ 2 MG INJ IVP PRN (08:56)
[2025-09-30] MEDS: ATIVAN INJ 2 MG VIAL IVP PRN (08:57)
[2025-09-30] MEDS: MORPHINE SULFATE INJ 2 MG INJ ONE (09:26)
[2025-09-30 11:54] VITALS: BP 104/60; PULSE 93; RESP 20; TEMP 98.1
--- NOTE | 2025-09-30 17:12 | PCM.DCPLAN ---
DISCHARGE SUMMARY Admission Date Date of Admission: 09/24/25 Discharge Date Discharge Date: 09/30/25 Admission Diagnoses (1) Obstipation: Status: Acute (2) Hypercalcemia of malignancy: Status: Acute (3) Metastatic primary lung cancer: Status: Acute (4) AMS (altered mental status): Status: Acute (5) Hypokalemia: Status: Acute (6) Hypoalbuminemia: Status: Acute Discharge Medications Discharge Medications: Home Medication List amlodipine 10 mg tablet 10 mg PO QDAY 09/24/25 [History] hydrocodone 5 mg-acetaminophen 325 mg tablet 1 tab PO TID PRN 09/24/25 [History] linaclotide 72 mcg capsule (Linzess) 72 mcg PO QAM 09/24/25 [History] lorazepam 0.5 mg tablet 0.5 mg PO QID PRN 09/24/25 [History] morphine concentrate 100 mg/5 mL (20 mg/mL) oral solution mg PO PRN PRN 09/24/25 [History] oxycodone 30 mg tablet 30 mg PO PRN PRN 09/24/25 [History] prochlorperazine maleate 10 mg tablet 10 mg PO Q6HR 09/24/25 [History] Prescriptions: Hospital Course Vital Signs: Vital Signs Temperature 97.3 F Temperature 98.3 F Pulse Rate [Apical] 94 Pulse Rate [Apical] 95 Respiratory Rate 22 Respiratory Rate 24 Respiratory Rate 24 Respiratory Rate 40 Respiratory Rate 23 Respiratory Rate 24 Blood Pressure [Left Arm] 120/57 Blood Pressure [Left Arm] 110/54 O2 Sat by Pulse Oximetry 98 O2 Sat by Pulse Oximetry 96 Latest Lab Results: Laboratory Last Values WBC 9.5 X10^3/uL (3.6-10.0) 09/30/25 05:44 RBC 4.26 X10^6/uL (3.5-5.4) 09/30/25 05:44 Hgb 10.1 g/dL (12.0-16.0) L 09/30/25 05:44 Hct 31.2 % (36.0-47.0) L 09/30/25 05:44 MCV 73.3 fL (80.0-100.0) L 09/30/25 05:44 MCH 23.8 pg (27.0-34.0) L 09/30/25 05:44 MCHC 32.5 g/dL (33.0-35.0) L 09/30/25 05:44 RDW 23.1 % (11.6-16.5) H 09/30/25 05:44 Plt Count 391 X10^3/uL (150.0-450.0) 09/30/25 05:44 Plt Count Comment Adequate (ADEQUATE) 09/30/25 05:44 MPV 7.2 fL (7.4-11.0) L 09/30/25 05:44 Neut % (Auto) 79.8 % (42.0-75.0) H 09/30/25 05:44 Lymph % (Auto) 8.3 % (21.0-51.0) L 09/30/25 05:44 [place] % (Auto) 9.7 % (0.0-13.0) 09/30/25 05:44 Eos % (Auto) 1.6 % (0.9-2.9) 09/30/25 05:44 Baso % (Auto) 0.6 % (0.2-1.0) 09/30/25 05:44 Neut # (Auto) 7.6 x10^3/uL (2.2-4.8) H 09/30/25 05:44 Lymph # (Auto) 0.8 X10^3/uL (1.3-2.9) L 09/30/25 05:44 [place] # (Auto) 0.9 x10^3/uL (0.3-0.8) H 09/30/25 05:44 Eos # (Auto) 0.1 x10^3/uL (0.0-0.2) 09/30/25 05:44 Baso # (Auto) 0.1 X10^3/uL (0.0-0.1) 09/30/25 05:44 Absolute Nucleated RBC 0.1 /100WBC 09/30/25 05:44 Plt Morphology Comment Normal (NORMAL) 09/30/25 05:44 RBC Morphology Abnormal (NORMAL) A 09/30/25 05:44 Hypochromasia 1+ A 09/30/25 05:44 Anisocytosis 2+ A 09/30/25 05:44 Microcytosis Slight A 09/30/25 05:44 Target Cells 1+ A 09/30/25 05:44 Tear Drop Cells Slight A 09/26/25 06:00 Ovalocytes Slight A 09/26/25 06:00 Sample Site L rad 09/26/25 03:42 ABG pH 7.470 (7.35-7.45) H 09/26/25 03:42 ABG pCO2 41.0 mmHg (35.0-45.0) 09/26/25 03:42 ABG pO2 86.0 mmHg (80.0-100.0) 09/26/25 03:42 ABG HCO3 29.8 mmol/L (22-26) H 09/26/25 03:42 ABG O2 Saturation 97.0 % (90-100) 09/26/25 03:42 ABG Base Excess 5.6 mmol/L (-2.0-2.0) H 09/26/25 03:42 Kin Test Pos 09/26/25 03:42 A-a Gradient 184.0 mmHg 09/26/25 03:42 FiO2 45.0 09/26/25 03:42 Blood Gas Comments [place] [facility] 09/26/25 03:42 Sodium 137 mmol/L (136-145) 09/30/25 05:44 Corrected Sodium 137 mmol/L (136-145) 09/30/25 05:44 Potassium 4.5 mmol/L (3.5-5.1) 09/30/25 05:44 Chloride 98 mmol/L (98-107) 09/30/25 05:44 Carbon Dioxide 31.6 mmol/L (21-32) 09/30/25 05:44 BUN 8 mg/dL (7-18) 09/30/25 05:44 Creatinine 0.55 mg/dL (0.55-1.02) 09/30/25 05:44 Est GFR (MDRD) Af Amer > 60 (>60) 09/30/25 05:44 Est GFR (MDRD) Non-Af > 60 (>60) 09/30/25 05:44 Glucose 116 mg/dL (65-99) H 09/30/25 05:44 POC Glucose (mg/dL) 115 mg/dL (65-99) H 09/30/25 05:27 Calcium 10.2 mg/dL (8.5-10.1) H 09/30/25 05:44 Corrected Calcium 11.6 mg/dL (8.5-10.1) H 09/30/25 05:44 Magnesium 2.0 mg/dL (2.0-2.9) 09/27/25 05:27 Total Bilirubin 0.60 mg/dL (0.2-1.0) 09/30/25 05:44 AST 30 Units/L (15-37) 09/30/25 05:44 ALT 15 Units/L (12-78) 09/30/25 05:44 Alkaline Phosphatase 108 Units/L (46-116) 09/30/25 05:44 Ammonia 25 umol/L (11-32) 09/25/25 13:10 Total Protein 8.8 g/dL (6.4-8.2) H 09/30/25 05:44 Albumin 2.2 g/dL (3.4-5.0) L 09/30/25 05:44 Globulin 6.6 g/dL (2.5-4.5) H 09/30/25 05:44 Albumin/Globulin Ratio 0.3 Ratio (1.1-2.1) L 09/30/25 05:44 Amylase 11 Units/L (25-115) L 09/24/25 14:50 Lipase 9 Units/L (16-77) L 09/24/25 14:50 Specimen Type Catherized urine 09/28/25 04:45 Urine Color Yellow (YELLOW) 09/28/25 04:45 Urine Appearance Hazy (CLEAR) 09/28/25 04:45 Urine pH 6.0 (5.0 - 8.0) 09/28/25 04:45 Ur Specific [place] 1.020 (1.000-1.030) 09/28/25 04:45 Urine Protein 2+ (NEGATIVE) 09/28/25 04:45 Urine Glucose (UA) Negative (NEGATIVE) 09/28/25 04:45 Urine Ketones Negative (NEGATIVE) 09/28/25 04:45 Urine Blood 3+ (NEGATIVE) 09/28/25 04:45 Urine Nitrite Negative (NEGATIVE) 09/28/25 04:45 Urine Bilirubin Negative (NEGATIVE) 09/28/25 04:45 Urine Urobilinogen Normal (NORMAL) 09/28/25 04:45 Ur Leukocyte Esterase 3+ (NEGATIVE) 09/28/25 04:45 Urine RBC 10-20 /HPF (0-3) A 09/28/25 04:45 Urine WBC Tntc /HPF (0-5) A 09/28/25 04:45 Ur Squamous Epith Cells Moderate /HPF (NEGATIVE) 09/28/25 04:45 Ur Renal Epithelial Cell Numerous /HPF (NEGATIVE) 09/28/25 04:45 Urine Bacteria Trace /HPF (NEGATIVE) 09/28/25 04:45 Hyaline Casts Few /LPF (NEGATIVE) 09/28/25 04:45 Urine Mucus Moderate /HPF (NEGATIVE) 09/28/25 04:45 Ur Culture Indicated? Yes/culture set up 09/28/25 04:45 Infect Dis PCR Plus See scanned report 09/28/25 04:45 Blood Type AB POSITIVE 09/28/25 09:49 Antibody Screen Negative 09/28/25 09:49 Crossmatch See Detail 09/28/25 09:49 Hospital Course: Patient with prolonged admission due to weakness, constipation, and dyspnea secondary to stage IV lung cancer and medications. Patient also given additional couple of days due to fever of uncertain origin. Cultures have been negative. No source found on labs. Patient wanting to discharge home and be back on hospice. Arrangements were made and discharging with family to home under the care of hospice services. PE: Ill-appearing female in no acute distress. Lungs greatly diminished with rhonchi. Mood and affect are appropriate for situation. Heart regular rate and rhythm. Bowel sounds are present and belly is soft and nontender.
== END 2025-09-30 14:25 | disposition hospice, home (50) ==
LOC: ER 14:30 → MED/SURG 14:30
PROVIDERS: ADMIT Family Medicine; ATTEND Family Medicine
DX: K21.9 Gastro-esophageal reflux disease without esophagitis; D64.89 Other specified anemias; R79.89 Other specified abnormal findings of blood chemistry; R10.84 Generalized abdominal pain; C34.91 Malignant neoplasm of unspecified part of right bronchus or lung; R06.02 Shortness of breath; R13.11 Dysphagia, oral phase; R00.0 Tachycardia, unspecified; K59.09 Other constipation; E11.65 Type 2 diabetes mellitus with hyperglycemia; C79.9 Secondary malignant neoplasm of unspecified site; R26.81 Unsteadiness on feet; M62.81 Muscle weakness (generalized); R41.0 Disorientation, unspecified; J44.89 Other specified chronic obstructive pulmonary disease; J90 Pleural effusion, not elsewhere classified; E83.52 Hypercalcemia; G89.3 Neoplasm related pain (acute) (chronic); F41.8 Other specified anxiety disorders; I10 Essential (primary) hypertension; Z79.899 Other long term (current) drug therapy; E87.6 Hypokalemia; Z92.21 Personal history of antineoplastic chemotherapy; R50.9 Fever, unspecified; L89.152 Pressure ulcer of sacral region, stage 2; E88.09 Other disorders of plasma-protein metabolism, not elsewhere classified